=== PATIENT | female | born 1980 | race American Indian/Alaskan Native ===

== ENCOUNTER 2021-03-02 12:07 | Emergency (ER) | payer SELFPAY ==
[2021-03-02 12:53] VITALS: BP 127/61
--- NOTE | 2021-03-02 13:09 | Emergency Department Report ---
ED General Adult HPI - General Chief complaint: Abdominal Pain Stated complaint: ABD PAIN Time Seen by Provider: 03/02/21 13:05 Source: patient Mode of arrival: Ambulatory Limitations: No Limitations - History of Present Illness Initial comments: 40-year-old -[place] female patient presents with complaints of right lower abdominal pain x1 month. + Vaginal discharge. She also reports abnormal vaginal bleeding for the past month, but denies any dyspareunia, urinary frequency/dysuria/hematuria, vomiting/diarrhea, constipation, melena/hematoch ezia, or fever/chills/sweats. She rates her current pain as a 7/10 in severity and states it feels as if her abdomen is distended. Patient states she was also seen at [place] for this a couple of weeks ago and denies having any imaging performed at the time. No past medical history per patient. - Related Data Previous Rx's Medication Instructions Recorded Last Taken Type Ibuprofen [Motrin 800 MG tab] 800 mg PO Q8HR PRN #20 tablet 03/02/21 Unknown Rx metroNIDAZOLE [Flagyl TAB] 500 mg PO Q12HR 7 Days #14 tab 03/02/21 Unknown Rx Allergies Allergy/AdvReac Type Severity Reaction Status Date / Time No Known Allergies Allergy Verified 03/02/21 12:53 ED Review of Systems ROS: Stated complaint: ABD PAIN Other details as noted in HPI Constitutional: denies: chills, fever Respiratory: denies: cough, shortness of breath Cardiovascular: denies: chest pain Gastrointestinal: abdominal pain. denies: nausea, vomiting Genitourinary: denies: urgency, dysuria, frequency, hematuria, discharge, abnormal menses, dyspareunia Skin: denies: rash, change in color Neurological: denies: headache Hematological/Lymphatic: denies: easy bleeding ED Past Medical Hx - Past Medical History Previous Medical History?: No - Surgical History Past Surgical History?: No - Social History Smoking Status: Never Smoker Substance Use Type: None - Medications Home Medications: Home Medications Medication Instructions Recorded Confirmed Last Taken Type Ibuprofen [Motrin 800 MG tab] 800 mg PO Q8HR PRN #20 tablet 03/02/21 Unknown Rx metroNIDAZOLE [Flagyl TAB] 500 mg PO Q12HR 7 Days #14 tab 03/02/21 Unknown Rx ED Physical Exam - General Limitations: No Limitations General appearance: alert, in no apparent distress - Head Head exam: Present: atraumatic, normocephalic - Eye Eye exam: Present: normal appearance. Absent: scleral icterus - Neck Neck exam: Present: normal inspection - Respiratory Respiratory exam: Present: normal lung sounds bilaterally. Absent: respiratory distress - Cardiovascular Cardiovascular Exam: Present: regular rate, normal rhythm - GI/Abdominal GI/Abdominal exam: Present: soft, distended (Mild), tenderness (Right suprapubic), normal bowel sounds. Absent: guarding, rebound, rigid - External exam: Present: normal external exam Speculum exam: Present: vaginal discharge, other (Polyp-like mass noted in distal vaginal canal that appears to be a cystocele). Absent: cervical discharge, vaginal bleeding - Extremities Exam Extremities exam: Present: normal inspection - Back Exam Back exam: Present: normal inspection. Absent: CVA tenderness (R) - Neurological Exam Neurological exam: Present: alert, oriented X3, normal gait - Psychiatric Psychiatric exam: Present: normal affect, normal mood - Skin Skin exam: Present: warm, dry, intact, normal color. Absent: rash ED Course Vital Signs 03/02/21 12:49 Temperature 98.6 F Pulse Rate 67 Respiratory 18 Rate Blood Pressure 127/61 O2 Sat by Pulse 100 Oximetry ED Medical Decision Making - Lab Data Result diagrams: 03/02/21 14:31 03/02/21 14:31 Lab Results 03/02/21 03/02/21 03/02/21 Range/Units 13:19 14:31 14:31 WBC 3.3 L (4.5-11.0) K/mm3 RBC 3.31 L (3.65-5.03) M/mm3 Hgb 8.0 L (10.1-14.3) gm/dl Hct 25.9 L (30.3-42.9) % MCV 78 L (79-97) fl MCH 24 L (28-32) pg MCHC 31 (30-34) % RDW 23.2 H (13.2-15.2) % Plt Count 231 (140-440) K/mm3 Lymph % (Auto) 37.1 H (13.4-35.0) % Gonzales % (Auto) 10.8 H (0.0-7.3) % Eos % (Auto) 1.0 (0.0-4.3) % Baso % (Auto) 0.5 (0.0-1.8) % Lymph # (Auto) 1.2 (1.2-5.4) K/mm3 Gonzales # (Auto) 0.4 (0.0-0.8) K/mm3 Eos # (Auto) 0.0 (0.0-0.4) K/mm3 Baso # (Auto) 0.0 (0.0-0.1) K/mm3 Seg Neutrophils % 50.6 (40.0-70.0) % Seg Neutrophils # 1.7 L (1.8-7.7) K/mm3 Sodium 139 (137-145) mmol/L Potassium 4.2 (3.6-5.0) mmol/L Chloride 107.5 H (98-107) mmol/L Carbon Dioxide 25 (22-30) mmol/L Anion Gap 11 mmol/L BUN 9 (7-17) mg/dL Creatinine 0.6 (0.6-1.2) mg/dL Estimated GFR > 60 ml/min BUN/Creatinine Ratio 15 % Glucose 71 (65-100) mg/dL Calcium 8.5 (8.4-10.2) mg/dL Total Bilirubin 0.20 (0.1-1.2) mg/dL AST 12 (5-40) units/L ALT 6 L (7-56) units/L Alkaline Phosphatase 49 (35-129) units/L Total Protein 6.1 L (6.3-8.2) g/dL Albumin 3.9 (3.9-5) g/dL Albumin/Globulin Ratio 1.8 % Lipase 28 (13-60) units/L Urine Color Straw (Yellow) Urine Turbidity Clear (Clear) Urine pH 6.0 (5.0-7.0) Ur Specific [place] 1.013 (1.003-1.030) Urine Protein <15 mg/dl (Negative) mg/dL Urine Glucose (UA) Neg (Negative) mg/dL Urine Ketones Neg (Negative) mg/dL Urine Blood Neg (Negative) Urine Nitrite Neg (Negative) Urine Bilirubin Neg (Negative) Urine Urobilinogen < 2.0 (<2.0) mg/dL Ur Leukocyte Esterase Tr (Negative) Urine WBC (Auto) 1.0 (0.0-6.0) /HPF Urine RBC (Auto) 1.0 (0.0-6.0) /HPF U Epithel Cells (Auto) < 1.0 (0-13.0) /HPF Urine Mucus Few /HPF - Radiology Data Radiology results: report reviewed HISTORY: abnormal bleeding, R pelvic pain. TECHNIQUE: Grayscale and color imaging performed. COMPARISON: None FINDINGS: Uterus measures 11.3 x 6.8 x 7.7 cm with endometrial echo complex measuring 2.4 cm. The uterus is heterogeneous in appearance with small rounded slightly hypoechoic masses measuring up to nearly 4 cm in maximal dimension. There is also an echogenic area within the endometrium with internal vascularity measuring roughly 2.1 cm which could represent a polyp or a submucosal fibroid. Ovaries unremarkable. There is trace simple pelvic free fluid which is likely physiologic. IMPRESSION: 1. Heterogeneous appearance of the uterus with fibroids. 2. Either submucosal fibroid or small polyp within or immediately adjacent to the endometrial mucosa. - Medical Decision Making 40-year-old -[place] female patient presents with complaints of right lower abdominal pain x1 month. + Vaginal discharge. She also reports abnormal vaginal bleeding for the past month, but denies any dyspareunia, urinary frequency/dysuria/hematuria, vomiting/diarrhea, constipation, melena/hematochezia, or fever/chills/sweats. She rates her current pain as a 7/10 in severity and states it feels as if her abdomen is distended. Patient states she was also seen at [place] for this a couple of weeks ago and denies having any imaging performed at the time. No past medical history per patient. Hemoglobin of 8 noted on labs-patient admits to history of anemia and states she has not been taking her iron. No current heavy vaginal bleeding per patient or fatigue. Ultrasound shows fibroids and possible polyp of the uterus. No CMT noted on exam, however there was a vaginal polyp noted that may be a cystocele. Recommend patient follows up with [facility] for further evaluation and treatment. Her vitals are normal, she is well-appearing, she is stable for discharge home. Strict return precautions discussed in detail with patient who verbalizes understanding. Critical care attestation.: If time is entered above; I have spent that time in minutes in the direct care of this critically ill patient, excluding procedure time. ED Disposition Clinical Impression: Uterine fibroid, Pelvic pain, Anemia, Bacterial vaginosis Disposition: DC-01 TO HOME OR SELFCARE Is pt being admited?: No Condition: Stable Instructions: Abdominal Pain (ED), Dysfunctional Uterine Bleeding, Uterine Fibroids, Bacterial Vaginosis (ED) Prescriptions: metroNIDAZOLE [Flagyl TAB] 500 mg PO Q12HR 7 Days #14 tab Ibuprofen [Motrin 800 MG tab] 800 mg PO Q8HR PRN #20 tablet PRN Reason: pain Forms: STI Treatment and Prevention
[2021-03-02 13:31] LABS: Bilirubin,Urine NEG (Negative); Blood,Urine NEG (Negative); Color,Urine Straw (Yellow); Mucus,Urine FEW /HPF; Protein,Urine <15 mg/dL mg/dL (Negative); Urobilinogen,Urine < 2.0 mg/dL (<2.0)
--- NOTE | 2021-03-02 14:08 | Ultrasound Report ---
Pelvic Ultrasound HISTORY: abnormal bleeding, R pelvic pain. TECHNIQUE: Grayscale and color imaging performed. COMPARISON: None FINDINGS: Uterus measures 11.3 x 6.8 x 7.7 cm with endometrial echo complex measuring 2.4 cm. The yann jeffry is heterogeneous in appearance with small rounded slightly hypoechoic masses measuring up to near ly 4 cm in maximal dimension. There is also an echogenic area within the endometrium with internal va scularity measuring roughly 2.1 cm which could represent a polyp or a submucosal fibroid. Ovaries unremarkable. There is trace simple pelvic free fluid which is likely physiologic. IMPRESSION: 1. Heterogeneous appearance of the uterus with fibroids. 2. Either submucosal fibroid or small polyp within or immediately adjacent to the endometrial mucosa. Signer Name: Remy Garcia MD Signed: 03/02/2021 2:04 PM Workstation Name: [id number]
[2021-03-02 15:05] LABS: Basophils % (Auto) 0.5 % (0.0-1.8); Hematocrit 25.9 % (30.3-42.9); Lymphocytes # (Auto) 1.2 K/mm3 (1.2-5.4); Lymphocytes % (Auto) 37.1 % (13.4-35.0); Mean Corpuscular HGB Conc 31 % (30-34); Mean Corpuscular Volume 78 fl (79-97); Monocytes # (Auto) 0.4 K/mm3 (0.0-0.8); Monocytes % (Auto) 10.8 % (0.0-7.3); Platelet Count 231 K/mm3 (140-440); Red Blood Count 3.31 M/mm3 (3.65-5.03)
[2021-03-02 15:07] LABS: Red Cell Distribution Width 23.2 % (13.2-15.2)
[2021-03-02 15:31] LABS: Alanine Aminotransferase 6 units/L (7-56); Albumin 3.9 g/dL (3.9-5); Blood Urea Nitrogen 9 mg/dL (7-17); Calcium 8.5 mg/dL (8.4-10.2); Hemolysis Index 1
[2021-03-02 15:51] LABS: BUN/Creatinine Ratio 15
== END 2021-03-02 17:44 | disposition home or self-care (01) ==
LOC: ED 12:07
DX: D25.9 Leiomyoma of uterus, unspecified (principal); R10.2 Pelvic and perineal pain; N76.0 Acute vaginitis; B96.89 Other specified bacterial agents as the cause of diseases classified elsewhere; D64.9 Anemia, unspecified; Z79.899 Other long term (current) drug therapy
CPT/HCPCS: 36415; 76856; 80053; 81001; 83690; 85025; 87210; 87591